=== PATIENT | male | born 1980 | race Two or more races ===

== ENCOUNTER 2018-11-14 15:58 | Emergency (ER) | payer MEDICARE, MEDICAID ==
[~2018-11-14] VITALS: Ht 180.3 cm; Wt 100.7 kg
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
[2018-11-14] MEDS ORDERED: HALOPERIDOL LACTATE INJ 5 MG/ML VIAL ONE (16:32)
[2018-11-14] MEDS ORDERED: diphenhydrAMINE HCL 50 MG/ML VIAL ONE (16:32)
[2018-11-14] MEDS ORDERED: LORAZEPAM INJ 2 MG/ML VIAL ONE ×5 (16:32→22:40)
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
--- NOTE | 2018-11-14 16:40 | NUR ---
PT WAS CALM AND COOPERATIVE, PT WAS USING URINAL TO GIVE URINE SAMPLE, PT BECAME VERY AGITATED, CALLED GABY MALDONADO ON PT. PT WAS GIVEN IM MEDS PER DR. NDIAYE. ELDON SIFUENTES AND JR
--- NOTE | 2018-11-14 16:50 | NUR ---
URINE COLLECTED AND SENT TO LAB
[2018-11-14] MEDS ORDERED: LORAZEPAM INJ 2 MG/ML VIAL IM ONE (17:00)
[2018-11-14] MEDS ORDERED: diphenhydrAMINE HCL 50 MG/ML VIAL IM ONE (17:00)
[2018-11-14] MEDS ORDERED: HALOPERIDOL LACTATE INJ 5 MG/ML VIAL IM ONE (17:00)
[2018-11-14 17:01] LABS: BASOPHILS # (AUTO) 0.3 /CMM (0.0-0.2); BASOPHILS % (AUTO) 1.5 % (0.0-2.0); EOSINOPHILS % (AUTO) 0.5 % (0.0-6.0); HEMATOCRIT 47 % (39-51); HEMOGLOBIN 15.4 g/dL (13.5-17.5); LYMPHOCYTES # (AUTO) 1.8 /CMM (0.8-4.8); LYMPHOCYTES % (AUTO) 9.8 % (20.0-44.0); MEAN CORPUSCULAR HGB CONC 33 g/dl (31.0-36.0); MEAN CORPUSCULAR VOLUME 92 fL (80-96); MONOCYTES # (AUTO) 1.2 /CMM (0.1-1.30); MONOCYTES % (AUTO) 6.5 % (2.0-12.0); NEUTROPHILS # (AUTO) 15.3 /CMM (1.8-8.9); NEUTROPHILS % (AUTO) 81.7 % (43.0-81.0); PLATELET COUNT (AUTO) 453 /CMM (150-450); RED BLOOD CELL COUNT(AUTO) 5.16 MIL/uL (4.5-6.0); WHITE BLOOD COUNT (AUTO) 18.8 K/uL (4.3-11.0)
[2018-11-14 17:11] LABS: APPEARANCE,URINE Clear (CLEAR); BILIRUBIN,URINE SMALL (NEGATIVE); BLOOD, URINE Moderate Ery/uL (NEGATIVE); COLOR,URINE Yellow (YELLOW); KETONES,URINE Trace (NEGATIVE); LEUKOCYTE ESTERASE ,URINE Negative (NEGATIVE); NITRITE, URINE Negative (NEGATIVE); PROTEIN,URINE 100 mg/dl (NEGATIVE); UGLUCOSE Negative (NEGATIVE); UROBILINOGEN,URINE 0.2 EU/dL (0.2)
[2018-11-14 17:14] LABS: CALCIUM, SERUM 9.1 mg/dL (8.5-10.1); CARBON DIOXIDE 12 mmol/L (21-32); CHLORIDE 105 mmol/L (98-107); CREATININE 1.7 mg/dL (0.6-1.3); GLUCOSE 126 mg/dL (74-106); SODIUM SERUM 144 mmol/L (136-145); UREA NITROGEN, BLOOD 20 mg/dL (7-18)
[2018-11-14 17:20] LABS: ALANINE AMINOTRANSFERASE 40 U/L (12-78); ALBUMIN 4.3 g/dL (3.4-5.0); ALKALINE PHOSPHATASE 130 U/L (46-116); ASPARTATE AMINOTRANSFERASE 22 U/L (15-37); BILIRUBIN,DIRECT 0.1 mg/dL (0.0-0.2); BILIRUBIN,TOTAL 0.4 mg/dL (0.2-1.0); TOTAL PROTEIN, SERUM 8.9 g/dL (6.4-8.2)
[2018-11-14 17:25] LABS: ACETAMINOPHEN < 2 ug/ml (10-30); ALCOHOL, BLOOD < 3 mg/dL (0-0); SALICYLATE 1.7 mg/dL (2.8-20.0)
[2018-11-14 17:28] LABS: BACTERIA,URINE Rare /HPF (None Seen); SQUAMOUS EPITHELIAL CELL,UR Few /HPF (None Seen); WBC,URINE NONE SEEN /HPF (0-3)
[2018-11-14] MEDS ORDERED: LORAZEPAM INJ 2 MG/ML VIAL IV ONE ×4 (17:30→23:00)
[2018-11-14] MEDS ORDERED: IV NS 0.9% 1,000 ML BAG IV ONE ×2 (17:30→19:30)
[2018-11-14] MEDS ORDERED: LamoTRIgine 100 MG TABLET PO STA (18:43)
[2018-11-14] MEDS ORDERED: LITHIUM CARBONATE (300 MG CAP) 300 MG CAPSULE PO STA (18:43)
[2018-11-14] MEDS ORDERED: OLANZAPINE 10 MG VIAL IM ONE ×2 (19:30→20:05)
[2018-11-14 20:17] LABS: THYROID STIMULATING HORMONE 1.649 uIU/mL (0.358-3.74)
--- NOTE | 2018-11-14 23:40 | NUR ---
PT BACK FROM RADIOLOGY. PENDING CT HEAD RESULT.
--- NOTE | 2018-11-15 03:23 | NUR ---
PT IN BED SLEEPING. NAD NOTED.
--- NOTE | 2018-11-15 04:17 | NUR ---
PER ART. PT UNABLE TO BE EVALUATED AT THIS TIME.
--- NOTE | 2018-11-15 05:22 | NUR ---
PER ART. PT HAS TO BE OUT OF RESTRAINTS AND STABLE FOR TRANSFER. ADVISED TO PASS PT ONTO DEBI IN THE AM.
--- NOTE | 2018-11-15 10:00 | NUR ---
A/O X 3, CALM, COOPERATIVE, ALLOWED TO GO TO THE RESTROOM WITH SITTER. BHAVYA HARO CALLED.
--- NOTE | 2018-11-15 10:57 | NUR ---
BHAVYA HARO AT BEDSIDE FOR EVAL
[2018-11-15 13:50] VITALS: BP 128/62
--- NOTE | 2018-11-15 14:00 | NUR ---
IV removed. Catheter intact and site benign. Pressure and 4x4 applied to site. No bleeding noted.Verbalized understanding of ACI,tachycardic but asymptomatic otherwise, Dr Lewis cleared for discharge.
== END 2018-11-15 14:20 | disposition home or self-care (01) ==
LOC: ER 16:02
DX: F29 Unspecified psychosis not due to a substance or known physiological condition (principal); G40.909 Epilepsy, unspecified, not intractable, without status epilepticus; N28.9 Disorder of kidney and ureter, unspecified; D72.829 Elevated white blood cell count, unspecified; R41.82 Altered mental status, unspecified; F41.9 Anxiety disorder, unspecified; F31.9 Bipolar disorder, unspecified; F60.0 Paranoid personality disorder; R00.0 Tachycardia, unspecified
CPT/HCPCS: 36415; 70450; 80048; 80076; 80305; 80307; 80329; 81001; 82140; 84443; 85025; 93005; 96361; 96372 ×4; 96374; 96376; 99284; G0480; J1200; J1630; J2060 ×5; J3490; J7030; 81000-TC